=== PATIENT | female | born 1950 | race Caucasian/White ===

== ENCOUNTER 2024-11-02 09:25 | Observation (INO) ==
--- NOTE | 2024-11-02 10:02 | Emergency Department Note ---
HPI - GI Bleed General Chief complaint: GI Bleed Stated complaint: blood in stool Time Seen by Provider: 11/02/24 09:31 Source: patient and family Mode of arrival: walk-in Limitations: no limitations History of Present Illness MD complaint: Reports blood on toilet paper and melena Onset (ago): month(s) Pain Consistency: Reports intermittent Severity: moderate Relieving factors: Reports none Exacerbating factors: Reports bowel movement Context: Reports history of GI bleed and hemorrhoids Associated symptoms: Reports weakness Treatments Prior to Arrival: Reports none Related Data Home Medications Medication Instructions Recorded Confirmed amiodarone 200 mg tablet 200 mg PO DAILY 09/17/24 09/17/24 chlorthalidone 25 mg tablet 25 mg PO DAILY 09/17/24 09/17/24 metoprolol tartrate 50 mg tablet 50 mg PO BID 09/17/24 09/17/24 Previous Rx's Medication Instructions Recorded ferrous sulfate 325 mg (65 mg 325 mg PO DAILY anemia #30 tabs 09/17/24 iron) tablet (Iron (ferrous sulfate)) Allergies Allergy/AdvReac Type Severity Reaction Status Date / Time No Known Drug Allergies Allergy Verified 11/02/24 10:09 Review of Systems Status of ROS 10 or more systems reviewed and unremark able except as noted in history and below Constitutional Denies: fever, chills, change in weight, fatigue, malaise, night sweats, change in sleep pattern or other Eyes Denies: change in vision, blurry vision, blind spots, light sensitivity, eye discomfort, eye discharge, dry eyes, increased production of tears, floaters, seeing flashes or decreased night vision Ears, nose, mouth, and throat Denies: throat pain, neck pain, throat swelling, difficulty swallowing, hoarseness, mouth pain, swelling of lips/tongue, dry mouth, bad breath, ear pain, ear discharge, change in hearing, tinnitus, vertigo, nasal discharge, nasal congestion, nose bleeds or post nasal drip Cardiovascular Denies: chest pain, palpitations, edema, swelling of feet/ankles, lightheadedness, shortness of breath with exertion, shortness of breath when lying down, leg pain with exertion or bluish discoloration of hands/feet Respiratory Denies: shortness of breath, cough, wheezing, stridor, pain on inspiration, change in phlegm color, coughing up blood or chest congestion Gastrointestinal Reports: blood in stool and other (dark stools times several months); Denies: abdominal pain, nausea, vomiting, coffee grounds in vomit, heartburn, diarrhea, constipation, bloating, belching, excessive passing of gas, difficulty swallowing, feeling full early, change in bowel habits, painful bowel movements, rectal pain, rectal swelling, rectal itching, change in stool character, mucus in stool, white/light colored stool or fatty stool Genitourinary Denies: painful urination, urinary frequency, urinary urgency, urinary incontinence, blood in urine, difficulty voiding, decreased urine ouput, pelvic pain, painful menstruation, vaginal bleeding, vaginal discharge, irregular period, change in menstrual flow, absence of menstruation, genital lesion, genital itching, vaginal dryness, vaginal odor, pain during intercourse, difficulty conceiving or change in libido Musculoskeletal Reports: muscle weakness; Denies: back pain, neck pain, extr emity pain, extremity swelling, joint pain, limited range of motion, joint swelling, muscle cramps or loss of height Integumentary/Breast Denies: rash, itching, redness, skin pain, skin tenderness, skin swelling, sores, new lesion, changing lesion, non-healing lesion, changes in skin color, jaundice, stretch nagy, acne, nail changes, change in hair, breast pain, breast swelling, nipple discharge, breast mass, breast skin changes or change in breast shape Neurological Denies: headache, numbness in extremities, weakness in extremities, lack of coordination, dizziness, vertigo, confusion, behavioral changes, slurred speech, difficulty communicating thoughts, seizure-like activity or involuntary movements Psychiatric Reports: anxiety; Denies: mood swings, panic attacks, change in sleep pattern, hopelessness, loss of interest, irritability, paranoia, memory loss, difficulty concentrating, visual hallucinations, auditory hallucinations, tactile hallucinations, suicidal ideation or homicidal ideation Endocrine Denies: excessive urination, excessive thirst, fatigue, cold int olerance, excessive sweating, flushing, heat intolerance, deepening of the voice, change in body appearance or change in libido Hematologic/Lymphatic Denies: easy bruising, easy bleeding or enlarged lymph nodes Allergic/Immunologic Denies: hives, throat swelling, tongue swelling, facial swelling, wheezing, itchy eyes, seasonal allergies or food intolerance [facility] Medical History (Updated 11/02/24 @ 10:14 by Malou Mehta RN) History of pacemaker Chest pain due to CAD COPD (chronic obstructive pulmonary disease) Dyspnea Anxiety and depression Paroxysmal sinus tachycardia Paroxysmal atrial fibrillation with RVR Hypertension Iron deficiency anemia due to chronic blood loss Surgical History (Updated 11/02/24 @ 10:14 by Malou Mehta RN) History of surgery on left wrist History of ankle surgery History of hysterectomy History of tubal ligation History of back surgery History of cardiac ablation for atrial fibrillation Social History Smoking status: never smoker Problems where you live: no known problems Highest level of school completed/degree received: high school Feel stressed/tense/nervous/anxious/difficulty sleeping: rather much Life stressors: other (none) Life stressor details: current medical condition Due to disability, difficulty making decisions: No Exam Constitutional: normal general appearance, distress noted (moderate), average body habitus, no limitations and alert Vital Signs - 24 hr 11/02/24 09:30 Temperature 97.9 F Pulse Rate 73 Respiratory Rate 18 Blood Pressure 144/83 Pulse Oximetry 96 Oxygen Delivery Me thod Room Air HENMT: normocephalic, head/scalp atraumatic, hearing grossly abnormal (hard of hearing), external ears normal, EACs normal, nasal mucous membranes normal, external nose normal, oral mucous membranes normal, oropharynx normal, dentition normal and gingiva normal Eyes: PERRL, EOMs intact bilaterally, conjunctivae normal, no scleral icterus, no papilledema, normal visual rutledge by confrontation, alignment normal, periorbital findings normal and no nystagmus Neck/C-Spine: visual inspection normal, trachea midline, cervical spine nontender, cervical full ROM noted, supple, no meningeal signs and thyroid normal Lymph: no lymphadenopathy noted and no lymphedema noted Chest: inspection of chest normal, palpation of chest normal, inspection of breast(s) abnormal (deferred) and palpation of breast(s) abnormal (deferred) Respiratory: breath sounds equal bilaterally, normal respiratory effort, clear to auscultation bilaterally, no wheezes, no rales, no retractions and no use of accessory muscles Cardiovascular: normal heart rate noted, regular rhythm noted, no gallop, no rub, no murmur, no JVD, no clicks, peripheral pulses 2+ throughout and no additional abnormal heart sounds Gastrointestinal: abdomen normal to inspection, abdomen soft to palpation, tender to palpation (RLQ), nontender to percussion, nondistended, normoactive bowel sounds, no hepatosplenomegaly, no masses, no pulsatile mass, no ascites and rectal exam abnormal (deferred) Genitourinary: no CVA tenderness, bladder normal to palpation, vaginal abnormality noted (deferred) and cervical abnormality noted (deferred) Back/Pelvis: spine normal to inspection, no thoracic spine tenderness, no lumbar spine tenderness, thoracic spine ROM normal, lumbar spine ROM normal and no paraspinal muscle tenderness noted Extremities: normal to inspection, normal to palpation, no tenderness, full ROM, no joint enlargement and no deformity 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, no movement abnormality noted, no focal motor deficit noted, no sensory deficits noted, deep tendon reflexes 2+ bilaterally, gait normal, speech normal, coordination normal, no pronator drift noted, no fasciculations noted and GCS normal Psychiatry: Mental Status Exam documented within this Exam's Psych section mental status grossly normal, oriented x3, thought process normal, cooperative, affect normal, psychomotor activity normal and memory normal Feel stressed/tense/nervous/anxious/difficulty sleeping: rather much Life stressors: other (none) Life stressor details: current medical condition Due to disability, difficulty making decisions: No Skin: skin color abnormal Reports (pale), no rash, no lesions, no ecchymosis noted, no wounds, no lacerations, skin turgor normal, no jaundice, no petechiae, no mottling, nails normal and no alopecia Course Course Hospital Course: 74-year-old female who presented to ER with complaint of possible GI bleed and anemia has been evaluated by physical exam, CBC, CMP, urinalysis, consultation with Dr. Neil's office. Patient's lab work reveals her to be anemic with a hemoglobin of 6.5 which she will be admitted to the hospital for blood transfusion and ongoing monitoring and possible transfer to [place] to the GI doctor at [place] to perform procedure recommended by Dr. Neil. Patient is in agreement with treatment plan and will continue to be monitored throughout the night. Vital Signs Vital signs: Vital Signs Temperature 97.9 F 11/02/24 09:30 Pulse Rate 73 11/02/24 09:30 Respiratory Rate 18 11/02/24 09:30 Blood Pressure 144/83 11/02/24 09:30 Pulse Oximetry 96 11/02/24 09:30 Oxygen Delivery Method Room Air 11/02/24 09:30 Temperature 97.9 F 11/02/24 09:30 Pulse Rate 73 11/02/24 09:30 Respiratory Rate 18 11/02/24 09:30 Blood Pressure 144/83 11/02/24 09:30 Pulse Oximetry 96 11/02/24 09:30 Oxygen Delivery Method Room Air 11/02/24 09:30 Discharge Plan Discharge Patient Disposition: Admitted As Observation Condition: Stable Chief Complaint: GI Bleed Clinical Impression: Iron deficiency anemia due to chronic blood loss, Lower gastrointestinal hemorrhage, Melena Prescriptions: No Action amiodarone 200 mg tablet 200 mg PO DAILY chlorthalidone 25 mg tablet 25 mg PO DAILY metoprolol tartrate 50 mg tablet 50 mg PO BID ferrous sulfate [Iron (ferrous sulfate)] 325 mg (65 mg iron) tablet 325 mg PO DAILY Qty: 30 0RF Print Language: Haitian Referrals: Marissa Jones DO [Primary Care Provider] - Time of Disposition: 14:00
[2024-11-02 10:43] LABS: Basophils%(Percent) Auto 0.7 (0.1-0.85); Eosinophils#(Absolute)Auto 0.1 (0.0-0.2); Eosinophils%(Percent) Auto 1.3 % (0.4-2.8); Granulocytes % - Auto 77.7 % (47.8-71.3); Granulocytes#(Absolute)- Auto 4.1 (2.3-6.0); Monocytes #(Absolute)- Auto 0.5 (1.1-3.1); Monocytes %(Percent)- Auto 10.4 % (3.6-9.8); Platelet Count 276 K/uL (152-353); White Blood Count 5.3 K/uL (4.3-9.3)
[2024-11-02 10:46] LABS: Potassium 4.6 mmol/L (3.6-5.2)
[2024-11-02 11:29] LABS: PH BODY FLUID EXCP BLOOD 7.5 (5 - 9); Urine Appearance CLEAR (CLEAR); Urine Blood NEGATIVE (NEG - TRACE); Urine Color YELLOW (STRAW/YELL.); Urine Urobilinogen Normal (NORMAL)
[2024-11-02 11:39] LABS: Hypochromia 3+ (18-19) (None Seen); RBC Morphology Abnormal (Normal); Total Cells Counted 100
[2024-11-02 11:40] LABS: Anisocytosis 1+ (Negative)
[2024-11-02] MEDS ORDERED: 0.9 % SODIUM CHLORIDE 100ML 100 ML IV ONE (12:38)
[2024-11-02] MEDS ORDERED: ONDANSETRON HCL/PF 4 MG/2 ML VIAL INJ PRN (17:46)
[2024-11-02] MEDS ORDERED: bisacodyL 10 MG SUPP.RECT PR PRN (17:46)
[2024-11-02] MEDS ORDERED: HYDROCODONE/ACETAMINOPHEN 5/325 MG TABLET PO PRN (17:46)
[2024-11-02] MEDS ORDERED: MAGNESIUM, ALUMINUM HYDROXIDE 30 ML ORAL.SUSP PO PRN (17:46)
[2024-11-02] MEDS ORDERED: MORPHINE SULFATE 4 MG/ML CARTRIDGE IV PRN (17:46)
[2024-11-02] MEDS: 0.9 % SODIUM CHLORIDE 1000 ML 1,000 ML IV SCH (18:39)
[2024-11-02 22:34] LABS: Hematocrit 30.5 % (35.9-46.7)
[2024-11-02] MEDS: ACETAMINOPHEN 1000 MG/100 ML 1,000 MG/100 ML IV.SOLN IV PRN (23:26)
[2024-11-03 05:43] LABS: Basophils #(Absolute) Auto 0.1 (0.0-0.1); Eosinophils#(Absolute)Auto 0.1 (0.0-0.2); Eosinophils%(Percent) Auto 1.7 % (0.4-2.8); Granulocytes % - Auto 78.4 % (47.8-71.3); Granulocytes#(Absolute)- Auto 4.4 (2.3-6.0); Hematocrit 32.2 % (35.9-46.7); Mean Corpuscular Volume 80.4 fl (81.0-93.7); Monocytes #(Absolute)- Auto 0.6 (1.1-3.1); Monocytes %(Percent)- Auto 10.1 % (3.6-9.8); Platelet Count 246 K/uL (152-353); White Blood Count 5.7 K/uL (4.3-9.3)
[2024-11-03 05:57] LABS: Potassium 3.8 mmol/L (3.6-5.2)
[2024-11-03 07:52] VITALS: BP 180/80; RESP 19; TEMP 98.3
[2024-11-03 09:16] VITALS: PULSE 88
[2024-11-03] MEDS: carvediloL 25 MG TABLET PO SCH (09:16)
[2024-11-03] MEDS: AMIODARONE HCL 200 MG TABLET PO SCH (09:16)
--- NOTE | 2024-11-03 12:08 | Short Stay Summary ---
H&P: HPI History of Present Illness Chief complaint: ANEMIA,GI BLEED,WEAKNESS Narrative: 74-year-old female who presented to ER with complaint of possible GI bleed and anemia has been evaluated by physical exam, CBC, CMP, urinalysis, consultation with Dr. Andrew's office. Patient's lab work reveals her to be anemic with a hemoglobin of 6.5 which she will be admitted to the hospital for blood transfusion and ongoing monitoring and possible transfer to [place] to the GI doctor at [facility] to perform procedure recommended by Dr. Andrew. Patient is in agreement with treatment plan and will continue to be monitored throughout the night. Review of Systems Status of ROS 10 or more systems reviewed and unremark able except as noted in history and below Constitutional Denies: fever, chills, change in weight, fatigue, malaise, night sweats, change in sleep pattern or other Eyes Denies: change in vision, blurry vision, blind spots, light sensitivity, eye discomfort, eye discharge, dry eyes, increased production of tears, floaters, seeing flashes or decreased night vision Ears, nose, mouth, and throat Denies: throat pain, neck pain, throat swelling, difficulty swallowing, hoarseness, mouth pain, swelling of lips/tongue, dry mouth, bad breath, ear pain, ear discharge, change in hearing, tinnitus, vertigo, nasal discharge, nasal congestion, nose bleeds or post nasal drip Cardiovascular Denies: chest pain, palpitations, edema, swelling of feet/ankles, lightheadedness, shortness of breath with exertion, shortness of breath when lying down, leg pain with exertion or bluish discoloration of hands/feet Respiratory Denies: shortness of breath, cough, wheezing, stridor, pain on i nspiration, change in phlegm color, coughing up blood or chest congestion Gastrointestinal Reports: blood in stool and other (dark stools times several months); Denies: abdominal pain, nausea, vomiting, coffee grounds in vomit, heartburn, diarrhea, constipation, bloating, belching, excessive passing of gas, difficulty swallowing, feeling full early, change in bowel habits, painful bowel movements, rectal pain, rectal swelling, rectal itching, change in stool character, mucus in stool, white/light colored stool or fatty stool Genitourinary Denies: painful urination, urinary frequency, urinary urgency, urinary incontinence, blood in urine, difficulty voiding, decreased urine ouput, pelvic pain, painful menstruation, vaginal bleeding, vaginal discharge, irregular period, change in menstrual flow, absence of menstruation, genital lesion, genital itching, vaginal dryness, vaginal odor, pain during intercourse, difficulty conceiving or change in libido Musculoskeletal Reports: muscle weakness; Denies: back pain, neck pain, extremity pain, extremity swelling, joint pain, limited range of motion, joint s welling, muscle cramps or loss of height Integumentary/Breast Denies: rash, itching, redness, skin pain, skin tenderness, skin swelling, sores, new lesion, changing lesion, non-healing lesion, changes in skin color, jaundice, stretch nagy, acne, nail changes, change in hair, breast pain, breast swelling, nipple discharge, breast mass, breast skin changes or change in breast shape Neurological Denies: headache, numbness in extremities, weakness in extremities, lack of coordination, dizziness, vertigo, confusion, behavioral changes, slurred speech, difficulty communicating thoughts, seizure-like activity or involuntary movements Psychiatric Reports: anxiety; Denies: mood swings, panic attacks, change in s leep pattern, hopelessness, loss of interest, irritability, paranoia, memory loss, difficulty concentrating, visual hallucinations, auditory hallucinations, tactile hallucinations, suicidal ideation or homicidal ideation Endocrine Denies: excessive urination, excessive thirst, fatigue, cold intolerance, excessive sweating, flushing, heat intolerance, deepening of the v oice, change in body appearance or change in libido Hematologic/Lymphatic Denies: easy bruising, easy bleeding or enlarged lymph nodes Allergic/Immunologic Denies: hives, throat swelling, tongue swelling, facial swelling, wheezing, itchy eyes, seasonal allergies or food intolerance [facility] Medical History (Updated 11/02/24 @ 10:14 by Malou Mehta RN) History of pacemaker Chest pain due to CAD COPD (chronic obstructive pulmonary disease) Dyspnea Anxiety and depression Paroxysmal sinus tachycardia Paroxysmal atrial fibrillation with RVR Hypertension Iron deficiency anemia due to chronic blood loss Surgical History (Updated 11/02/24 @ 10:14 by Malou Mehta RN) History of surgery on left wrist History of ankle surgery History of hysterectomy History of tubal ligation History of back surgery History of cardiac ablation for atrial fibrillation Social History Smoking status: never smoker Problems where you live: no known problems Highest level of school completed/degree received: decline to answer Feel stressed/tense/nervous/anxious/difficulty sleeping: rather much Life stressors: other (none) Life stressor details: current medical condition Due to disability, difficulty making decisions: No Meds Home Medications and Allergies Home Medications Medication Instructions Recorded Confirmed Type amiodarone 200 mg tablet 200 mg PO DAILY 09/17/24 11/03/24 History chlorthalidone 25 mg tablet 25 mg PO DAILY 09/17/24 11/03/24 History ferrous sulfate 325 mg (65 mg 325 mg PO DAILY anemia #30 tabs 09/17/24 11/03/24 Rx iron) tablet (Iron (ferrous sulfate)) carvedilol 25 mg tablet 25 mg PO BID BP 11/03/24 11/03/24 History pantoprazole 40 mg tablet,delayed 40 mg PO DAILY 11/03/24 11/03/24 History release Allergies Allergy/AdvReac Type Severity Reaction Status Date / Time No Known Drug Allergies Allergy Verified 11/02/24 10:09 Exam Exam: Patient sitting up at bedside upon entering room for exam. Spouse of patient at bedside along with nurse. Constitutional: normal general appearance, no apparent distress, average body habitus, no limitations and alert Vital Signs - 24 hr 11/02/24 13:00 11/02/24 14:00 11/02/24 14:50 Temperature 98.5 F 98.4 F 98.4 F Pulse Rate 80 92 H 89 Pulse Rate [Left] Respiratory Rate 18 18 18 Blood Pressure 133/67 148/89 141/76 Blood Pressure [Le ft Arm] Pulse Oximetry 98 97 98 Oxygen Delivery Me thod Room Air Room Air Room Air 11/02/24 15:35 11/02/24 15:50 11/02/24 16:35 Temperature 98.8 F 98.8 F 99.0 F Pulse Rate 84 89 81 Pulse Rate [Left] Respiratory Rate 17 18 17 Blood Pressure 140/68 140/68 162/82 Blood Pressure [Le ft Arm] Pulse Oximetry 98 98 97 Oxygen Delivery Me thod Room Air Room Air Room Air 11/02/24 17:35 11/02/24 17:46 11/02/24 18:28 Temperature 98.9 F 98.8 F 98.9 F Pulse Rate 98 H 98 H Pulse Rate [Left] 93 H Respiratory Rate 16 18 16 Blood Pressure 166/89 166/89 Blood Pressure [Le ft Arm] 151/75 Pulse Oximetry 98 98 98 Oxygen Delivery Me thod Room Air Room Air 11/02/24 19:43 11/02/24 23:46 11/03/24 03:29 Temperature 98.6 F 97.6 F 97.9 F Pulse Rate Pulse Rate [Left] 82 81 70 Respiratory Rate 16 18 17 Blood Pressure Blood Pressure [Le ft Arm] 127/59 162/77 160/88 Pulse Oximetry 94 L 95 98 Oxygen Delivery Me thod Room Air Room Air Room Air 11/03/24 07:50 11/03/24 09:16 11/03/24 09:16 Temperature 98.3 F Pulse Rate 88 88 Pulse Rate [Left] 84 Respiratory Rate 19 Blood Pressure 180/80 180/80 Blood Pressure [Le ft Arm] 180/80 Pulse Oximetry 97 Oxygen Delivery Me thod Room Air HENMT: normocephalic, head/scalp atraumatic, hearing grossly abnormal (hard of hearing), external ears normal, EACs normal, nasal mucous membranes normal, external nose normal, oral mucous membranes normal, oropharynx normal, dentition normal and gingiva normal Eyes: PERRL, EOMs intact bilaterally, conjunctivae normal, no scleral icterus, no papilledema, normal visual rutledge by confrontation, alignment normal, periorbital findings normal and no nystagmus Neck/C-Spine: visual inspection normal, trachea midline, cervical spine nontender, cervical full ROM noted, supple, no meningeal signs and thyroid normal Lymph: no lymphadenopathy noted and no lymphedema noted Chest: inspection of chest normal and palpation of chest normal Respiratory: breath sounds equal bilaterally, normal respiratory effort, clear to auscultation bilaterally, no wheezes, no rales, no retractions and no use of accessory muscles Cardiovascular: normal heart rate noted, regular rhythm noted, no gallop, no rub, no murmur, no JVD, no clicks, peripheral pulses 2+ throughout and no a dditional abnormal heart sounds Gastrointestinal: abdomen normal to inspection, abdomen soft to palpation, nontender to percussion, nondistended, normoactive bowel sounds, no hepatosplenomegaly, no masses, no pulsatile mass and no ascites Genitourinary: no CVA tenderness and bladder normal to palpation Back/Pelvis: spine normal to inspection, no thoracic spine tenderness, no lumbar spine tenderness, thoracic spine ROM normal, lumbar spine ROM normal and no paraspinal muscle tenderness noted Extremities: normal to inspection, normal to palpation, no tenderness, full ROM, no joint enlargement and no deformity Neurology: pole climber II-XII intact, no movement abnormality noted, no focal motor deficit noted, no sensory deficits noted, deep tendon reflexes 2+ bilaterally, gait normal, speech normal, coordination normal, no pronator drift noted, no fas ciculations noted and GCS normal Psychiatry: Mental Status Exam documented within this Exam's Psych section mental status grossly normal, oriented x3, thought process normal, cooperative, affect normal, psychomotor activity normal and memory normal Skin: skin color normal, no rash, no lesions, no ecchymosis noted, no wounds, no lacerations, skin turgor normal, no jaundice, no petechiae, no mottling, nails normal and no alopecia Assessment and Plan Assessment and Plan (1) Iron deficiency anemia due to chronic blood loss: Code(s): D50.0 - Iron deficiency anemia secondary to blood loss (chronic) (2) Hypertension: Qualifiers: Hypertension type: primary hypertension Qualified Code(s): I10 - Essential (primary) hypertension Code(s): I10 - Essential (primary) hypertension (3) Paroxysmal atrial fibrillation with RVR: Code(s): I48.0 - Paroxysmal atrial fibrillation (4) Anxiety and depression: Code(s): F41.9 - Anxiety disorder, unspecified; F32.A - Depression, unspecified (5) COPD (chronic obstructive pulmonary disease): Qualifiers: COPD type: unspecified COPD Qualified Code(s): J44.9 - Chronic obstructive pulmonary disease, unspecified Code(s): J44.9 - Chronic obstructive pulmonary disease, unspecified Plan Magnesium Hydroxide 30 ml PO Daily PRN Bisacodyl 10 mg SD DAILY PRN Sodium Chloride 1,000 mls @ 75 mls/hr IV CONT Hydrocodone Bitart/Acetaminophen 5/325 mg PO Q4H PRN Morphine Sulfate 4 mg IV Q6H PRN Ondansetron Hcl 4 mg INJ Q6H PRN Acetaminophen 1,000 mg in 100 mls @ 400 mls/hr IV Q6H PRN Amiodarone Hcl 200 mg PO DAILY Carvedilol 25 mg PO BID Transfused (2) units of packed red blood cells. Patient is ready to discharge home for self care. Results Labs Labs: CBC WBC 5.7 K/uL (4.3-9.3) 11/03/24 05:10 RBC 4.0 M/uL (4.00-5.50) 11/03/24 05:10 Hgb 10.3 gm/dL (12.5-15.8) L 11/03/24 05:10 Hct 32.2 % (35.9-46.7) L 11/03/24 05:10 MCV 80.4 fl (81.0-93.7) L 11/03/24 05:10 MCH 25.6 pg (27.6-32.2) L 11/03/24 05:10 MCHC 31.9 g/dl (33.1-35.3) L 11/03/24 05:10 RDW 18.2 % (11.4-14.2) H 11/03/24 05:10 Plt Count 246 K/uL (152-353) 11/03/24 05:10 MPV 7.9 fl (6.9-10.8) 11/03/24 05:10 Gran % 78.4 % (47.8-71.3) H 11/03/24 05:10 Lymph % (Auto) 8.8 % (20.0-43.0) L 11/03/24 05:10 Mcintosh % (Auto) 10.1 % (3.6-9.8) H 11/03/24 05:10 Eos % (Auto) 1.7 % (0.4-2.8) 11/03/24 05:10 Baso % (Auto) 1.0 (0.1-0.85) H 11/03/24 05:10 Lymph # (Auto) 0.5 (1.1-3.1) L 11/03/24 05:10 Mcintosh # (Auto) 0.6 (1.1-3.1) L 11/03/24 05:10 Eos # (Auto) 0.1 (0.0-0.2) 11/03/24 05:10 Baso # (Auto) 0.1 (0.0-0.1) 11/03/24 05:10 Absolute Gran (auto) 4.4 (2.3-6.0) 11/03/24 05:10 BMP Sodium 137 mmol/L (136-145) 11/03/24 05:10 Potassium 3.8 mmol/L (3.6-5.2) 11/03/24 05:10 Chloride 101.0 mmol/L (98-107) 11/03/24 05:10 Carbon Dioxide 28 mmol/L (21-32) 11/03/24 05:10 Anion Gap 8.0 mEq/L (4-14) 11/03/24 05:10 BUN 18 mg/dL (7-18) 11/03/24 05:10 Creatinine 0.7 mg/dL (0.6-1.3) 11/03/24 05:10 Estimated GFR 91.3 (>59.9) 11/03/24 05:10 Glucose 91 mg/dL (70-110) 11/03/24 05:10 Calcium 8.3 mg/dL (8.5-10.1) L 11/03/24 05:10 Total Bilirubin 1.24 mg/dL (0.0-1.0) H 11/03/24 05:10 AST 22 U/L (15-37) 11/03/24 05:10 ALT 21 U/L (30-65) L 11/03/24 05:10 Alkaline Phosphatase 83 U/L (50-136) 11/03/24 05:10 Total Protein 6.1 g/dL (6.4-8.2) L 11/03/24 05:10 Albumin 3.1 g/dL (3.4-5.0) L 11/03/24 05:10 Liver Function Total Bilirubin 1.24 mg/dL (0.0-1.0) H 11/03/24 05:10 AST 22 U/L (15-37) 11/03/24 05:10 ALT 21 U/L (30-65) L 11/03/24 05:10 Alkaline Phosphatase 83 U/L (50-136) 11/03/24 05:10 Total Protein 6.1 g/dL (6.4-8.2) L 11/03/24 05:10 Albumin 3.1 g/dL (3.4-5.0) L 11/03/24 05:10 Urine Urine Color Yellow (STRAW/YELL.) 11/02/24 11:20 Urine Appearance Clear (CLEAR) 11/02/24 11:20 Ur Specific [place] 1.010 (1.001-1.035) 11/02/24 11:20 Urine Protein Negative (NEGATIVE) 11/02/24 11:20 Urine Glucose (UA) Normal (NORMAL) 11/02/24 11:20 Urine Ketones Negative (NEGATIVE) 11/02/24 11:20 Urine Occult Blood Negative (NEG - TRACE) 11/02/24 11:20 Urine Nitrite Negative (NEGATIVE) 11/02/24 11:20 Urine Bilirubin Negative (NEGATIVE) 11/02/24 11:20 Urine Urobilinogen Normal (NORMAL) 11/02/24 11:20 Ur Leukocyte Esterase Negative (NEGATIVE) 11/02/24 11:20 DS: Providers Provider Date of admission: 11/02/24 18:13 Primary care physician: Marissa Jones DO Admitting clinician: Sam Salazar Attending physician on admission: Marissa Jones Attending physician on discharge: Marissa Jones Discharging clinician: Marissa Jones Anticipated date of discharge: 11/03/24 DS: Summary Hospital Course Hospital Course: 74-year-old female who presented to ER with complaint of possible GI bleed and anemia has been evaluated by physical exam, CBC, CMP, urinalysis, consultation with Dr. Andrew's office. Patient's lab work reveals her to be anemic with a hemoglobin of 6.5 which she will be admitted to the hospital for blood transfusion and ongoing monitoring and possible transfer to [place] to the GI doctor at [facility] to perform procedure recommended by Dr. Andrew. Patient is in agreement with treatment plan and will continue to be monitored throughout the night. Patient received two units of packed red blood cells while in the ER. Hemoglobin improved from 6.5 to 10.3. She stated she has been unable to get in with the new specialist for her condition at [facility] in [place]. Case management has met with patient and working on confirming appointment with specialist at [facility] per Dr. 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 Patient is back to baseline and ready for discharge home for self care. Mrs. Gomez and spouse were educated on returning to ER if symptoms reoccur prior to specialist appointment. Post hospital follow up appointment with PCP in 2-3 days. Status at Discharge Functional status at discharge: independent ambulation Overall status at discharge: patient is back to baseline Time Spent with Patient Time attestation: Total time spent providing and/or coordinating discharge services: Time spent: greater than 30 minutes Discharge Plan Discharge Disposition: Home, Self-Care Condition: Stable Discharge Medications: Continued amiodarone 200 mg tablet 200 mg PO DAILY chlorthalidone 25 mg tablet 25 mg PO DAILY Patient Comments: pt states she only takes twice a week but she is going to start back taking it every day ferrous sulfate [Iron (ferrous sulfate)] 325 mg (65 mg iron) tablet 325 mg PO DAILY Qty: 30 0RF carvedilol 25 mg tablet 25 mg PO BID pantoprazole 40 mg tablet,delayed release (DR/EC) 40 mg PO DAILY Patient Comments: pt states she takes every other day Discharge Orders: Discharge Order (Routine); Ordered 11/03/24 Ordered By: Marissa Jones Activity: return to school once cleared by your PCP/specialist Diet: other Diet Detail: small frequent bland meals Interventions: Discharge Assessment Last Done: 11/03/24 11:03 MED/SURG & ICU Observation Charge Sheet Last Done: 11/03/24 11:07 Patient Instructions: Gastrointestinal Bleeding (DC), Anemia (DC) Activity Restrictions/Additional Instructions: Aniyah Coe appointment for small bowel bleeding Follow up Dr Andrew 7-10 days and PCP in 2 days for repeat CBC and follow up as warranted keep stools soft even if need to add Colace if bleeding recurs return to the ER [facility] TUESDAY NOVEMBER 05, 2024 AT 11:30 WITH TAVARES SALAZAR AT DOCS Forms: Portal/Health Info Access Inst Follow-Ups: Marissa Jones DO [Primary Care Provider] -
== END 2024-11-03 11:25 | disposition home or self-care (01) ==
LOC: MS 09:25 → ED 09:25 → MS 18:29
PROVIDERS: ADMIT Family Medicine; ATTEND Family Medicine